=== PATIENT | male | born 2000 | race Caucasian/White ===

== ENCOUNTER 2024-09-15 17:44 | Emergency (ER) | payer BC, SELFPAY ==
[2024-09-15 17:49] VITALS: BP 141/87; PULSE 67; TEMP 37.1; O2SAT 99; BMI 35.4
--- NOTE | 2024-09-15 18:17 | ED_ITS ---
HPI - Wound/Laceration General Chief Complaint: Wound/Laceration Stated Complaint: Laceration Time Seen by Provider: 09/15/24 17:57 Source: patient Mode of arrival: walk-in Limitations: no limitations History of Present Illness HPI narrative: Patient is a 24-year-old male who presents to the emergency department for the evaluation of a laceration to the left index finger. Patient is right-hand dominant. He states he was using a chainsaw to cut wood when he slipped and lacerated the proximal phalanx of the left index finger on the dorsum. Bleeding is well-controlled. Tetanus is up-to-date. No other associated injuries. Related Data Previous Rx's ?Medication ?Instructions ?Recorded cephalexin 500 mg capsule 500 mg PO Q8H 10 days #30 caps 09/15/24 hydrocodone 5 mg-acetaminophen 325 1 tab PO Q6H PRN pain 3 days #12 09/15/24 mg tablet tabs Allergies Allergy/AdvReac Type Severity Reaction Status Date / Time vancomycin Allergy Anaphylaxis Verified 09/15/24 17:53 Review of Systems ROS Constitutional Denies: fever or chills Ears, nose, mouth, and throat Denies: throat pain or nasal discharge Respiratory Denies: shortness of breath Gastrointestinal Denies: vomiting Musculoskeletal Reports: extremity pain Integumentary/Breast Denies: rash Neurological Denies: numbness in extremities or weakness in extremities Hematologic/Lymphatic Denies: easy bruising or easy bleeding PFSH PFS Social History Little interest or pleasure in doing things: not at all Feeling down, depressed, or hopeless: not at all Exam Narrative Exam Narrative: Gen.: Awake, alert, in no distress Head: Normocephalic, atraumatic ENT: Moist mucous membranes Respiratory: No respiratory distress Extremities: 2 cm jagged laceration noted over the dorsum of the left index finger over the PIP joint. Normal flexion and extension of the left index finger with no evidence of tendon deficit. No bony exposure. No laceration noted to the palmar aspect of the finger. Bleeding is well-controlled Psych: Normal mood and affect Neuro: No focal neuro deficit Skin: Warm, dry Constitutional Vital Signs, click to edit/add: Last Vital Signs Temp 98.7 F 09/15/24 17:49 Pulse 67 09/15/24 17:49 Resp 18 09/15/24 17:49 BP 141/87 09/15/24 17:49 Pulse Ox 99 09/15/24 17:49 O2 Del Method Room Air 09/15/24 17:49 Course Vital Signs Vital signs: Vital Signs Temperature 98.7 F 09/15/24 17:49 Pulse Rate 67 09/15/24 17:49 Respiratory Rate 18 09/15/24 17:49 Blood Pressure 141/87 09/15/24 17:49 Pulse Oximetry 99 09/15/24 17:49 Oxygen Delivery Method Room Air 09/15/24 17:49 Temperature 98.7 F 09/15/24 17:49 Pulse Rate 67 09/15/24 17:49 Respiratory Rate 18 09/15/24 17:49 Blood Pressure 141/87 09/15/24 17:49 Pulse Oximetry 99 09/15/24 17:49 Oxygen Delivery Method Room Air 09/15/24 17:49 MDM - Wound/Laceration MDM Narrative Medical decision making narrative: Laceration was evaluated by PA, laceration was repaired by attending physician. Please see procedure note for details. X-ray found to have a small avulsion of the bone of the middle phalanx. Patient placed on antibiotics in addition to a short course of analgesics. Finger splint was applied at discharge and patient remains neurovascularly intact. Follow-up with PCP for suture removal and reevaluation. Return to the ER if symptoms change or worsen. Attending physician procedure note: Laceration repair: Done under sterile conditions. The use of Shur-Clens prep the area. Digital block with lidocaine 1% was used, approximately 5 cc. The wound was irrigated copiously with normal saline. The wound was explored there was no evidence of foreign material. The laceration was approximated with 4-0 nylon. Four simple interrupted sutures were placed with figure of eight suture. Patient tolerated the procedure well. The patient was neurovascularly intact post. the patient had bacitracin applied to the laceration and a dry sterile dressing was place. The patient will need to follow-up in the next 7-10 days for removal SHARED APC VISIT, PHYSICIAN ATTESTATION: [id number] I performed a substantive part of the MDM during the patient?s E/M visit. I personally evaluated and examined the patient. I personally made or approved the documented management plan and acknowledge its risk of complications. Medical Records Attestation: I reviewed the patient's medical records. Imaging Data XR finger: Attestation: I have reviewed the pertinent imaging results. Radiologist's impression: ITS Impressions Finger X-Ray 09/15/24 18:17 IMPRESSION: Traumatic defect of the dorsum of the base of the second middle phalanx with overlying soft tissue injury. Electronically authenticated by: LEIGHTON RIVERA Date: 09/15/2024 20:14 Discharge Plan Discharge Chief Complaint: Wound/Laceration Clinical Impression: Finger laceration, Fracture of middle phalanx of index finger Patient Disposition: Home, Self-Care Time of Disposition Decision: 18:44 Condition: Good Prescriptions / Home Meds: New hydrocodone-acetaminophen 5-325 mg tablet 1 tab PO Q6H PRN (Reason: pain) 3 Days Qty: 12 0RF Rx Instructions: S61.219A cephalexin 500 mg capsule 500 mg PO Q8H 10 Days Qty: 30 0RF Print Language: Sammarinese Instructions: Finger Fracture (ED), Finger Laceration (ED) Additional Instructions: Please call Dr. Grigsby's office on Wednesday to schedule an appointment for suture removal in 7-10 days Referrals: Graham Grigsby MD [Primary Care Provider] - 1 week Discharge Date/Time: 09/15/24 19:22
--- NOTE | 2024-09-15 18:17 | XR_ITS ---
[address] [address] Patient Name: MARIE FERNANDEZ MRN: [id number] date: 2000 Sex: M Assigned Patient Location: ER Current Patient Location: ED.MAIN Accession/Order Number: [id number] Exam Date: 09/15/2024 18:25 Report Date: 09/15/2024 20:14 At the request of: RADHA MACHUCA Procedure: XR finger LT min 2V EXAM: XR finger LT min 2V TECHNIQUE: AP, lateral and oblique views left second finger HISTORY: laceration COMPARISON: None. FINDINGS: Injury to the dorsal cortex of the second middle phalanx near the base. Overlying soft tissue injury of the second digit. No arthritic changes. XR/XR finger LT min 2V IMPRESSION: Traumatic defect of the dorsum of the base of the second middle phalanx with overlying soft tissue injury. Electronically authenticated by: LEIGHTON RIVERA Date: 09/15/2024 20:14
[2024-09-15] MEDS: BACITRACIN 0.9 GM PACKET 1 PACKET TOPICAL (18:23)
[2024-09-15] MEDS: LIDOCAINE HCL 1% 100 MG/10 ML MDV INJ (18:24)
== END 2024-09-15 19:22 | disposition home or self-care (01) ==
PROVIDERS: Emergency Provider Emergency Medicine; PCP Family Medicine
DX: S62.621B Displaced fracture of middle phalanx of left index finger, initial encounter for open fracture (principal); W29.3XXA Contact with powered garden and outdoor hand tools and machinery, initial encounter
CPT/HCPCS: 12001; 73140; 99284